=== PATIENT | male | born 1960 | race Caucasian/White ===

== ENCOUNTER 2023-07-14 12:25 | Emergency (ER) | payer OTHER, SELFPAY ==
[2023-07-14 12:25] VITALS: BMI 35.2
[2023-07-14 12:28] VITALS: BP 129/61
[2023-07-14 12:30] VITALS: BP 129/61
[2023-07-14 13:00] VITALS: BP 130/63
--- NOTE | 2023-07-14 13:03 | ED.GENMED ---
History of Present Illness
General
Chief Complaint: Chest Pain
Source: patient
Time Seen by Provider: 07/14/23 12:34
Travel History
Have you had any contact with someone who has COVID-19?: No
Do you have any symptoms of coronavirus? Fever > 100 degrees, chills, cough, shortness of breath, sore throat, loss of taste or smell, muscle aches, or headache?: No
History of Present Illness
History of Present Illness:
-year-old male presents emergency room complaining having a reaction to rituximab. Patient is receiving treatment for non-Hodgkin's lymphoma. While receiving treatment he began to feel chest tightness, dizziness and developed erythematous rash of
his face trunk and thighs. He was given albuterol nebs, Pepcid, Solu-Medrol and EpiPen. Symptoms have been improving. Chest discomfort is '10% of what it was earlier'.
Phy Exam
Physical Exam
Physical Exam:
General: Awake, Alert, Oriented X3. No acute distress.
Vitals: unremarkable
Head: Atraumatic
Eyes: Pupils equal, EOMI
Throat: Airway intact, no exudates
Neck: Trachea midline
Lungs: Clear and equal b/l
Heart: Regular rate, no murmurs
Abd: Soft, Nontender, No pulsatile mass
Neuro: Nonfocal
Skin: Pale, warm, dry, macular rash noted to thighs, trunk
Extremities: pulses equal b/l, no edema
Scores
Heart Score for Chest Pain Patients
STEMI patient?: Not applicable
Course
Orders/Labs/Results
Orders:
Orders
07/14/23 12:26
Electrocardiogram (*1) Urgent
Reason for Study: Chest Pain
07/14/23 12:27
EKG- Treatment ONCE
07/14/23 13:19
Troponin I Urgent
Vital Signs
Initial and Last Documented VS:
Initial Vital Signs
Pulse Resp BP
83 24 129/61
07/14/23 12:28 07/14/23 12:28 07/14/23 12:28
Last Documented Vital Signs
Temp Pulse Resp BP Pulse Ox
97.8 F 83 13 137/64 98
07/14/23 12:30 07/14/23 15:00 07/14/23 15:00 07/14/23 15:00 07/14/23 15:00
MDM/Problems Addressed
Differential Diagnosis Includes:
allergic reaction, anaphylactoid rx
MDM/Problems Addressed:
symptoms improved. Pt observed for a couple hours and has remained stable. Pt discharged to home
*Pulse Oximetry
Patient hypoxic: no
*EKG
Interpreted by ED Provider?: Yes
Comparison EKG: no comparison EKG present
Heart Rate: 79
Rate: normal
Rhythm: sinus and PAC's
Interval: normal interval
QRS Pattern: normal QRS
Ischemia: non-specific ST changes
*[employer] Interpretation
Rate: normal
Interpretation: normal
Rhythm: sinus
*Critical Care Note
Total Time (30-74mins, 75-104mins- exclusive of procedures): Not Applicable
ED Attending Note
-
Portions of this chart may have been created with voice recognition software.� Occasional wrong word or��sound alike� substitutions may have occurred due to the inherent limitations of voice recognition software.
Discharge Plan
Departure
Patient Disposition: Home (Routine Discharge)
Date of Disposition: 07/14/23
Time of Disposition: 14:56
Patient with high blood pressure during this ER visit?: No
Condition: Good
Discharge Problem:
Allergic reaction
Instructions: Adverse Drug Reactions, Adult ED
Prescriptions:
No Action
zolpidem [Ambien] 10 mg Tablet
10 mg PO HSPRN PRN (Reason: sleep/racing thoughts)
Patient Comments:
07/14/2023, pt. filled this med. on 03/08/2023 for 30 tablets according to PDMP.
docusate sodium 250 mg Capsule
1,000 mg PO BID
lidocaine-prilocaine 2.5-2.5 % Cream
1 applic TOPICAL DIRECTED
Patient Comments:
07/14/2023, apply when accessing port site.
famotidine [Pepcid] 20 mg Tablet
20 mg PO BID PRN (Reason: stomach discomfort)
omeprazole magnesium [Prilosec OTC] 20 mg Tablet,Delayed Release (Dr/Ec)
20 mg PO BID
bendamustine
171 mg IV .SEE BELOW
Patient Comments:
07/14/2023, pt. gets this treatment on day 1 and 2 every 28 days. Contacted [facility]ID Department to confirm dose and frequency of this treatment.
pegfilgrastim
6 mg SC .SEE BELOW
Patient Comments:
07/14/2023, next treatment is 07/18/2023. Contacted [facility]ID Department to confirm dose and frequency of this treatment.
rituximab
712 mg IV .SEE BELOW
Patient Comments:
07/14/2023, pt. gets this treatment on day 1 every 28 days. Contacted [facility]ID Department to confirm dose and frequency of this treatment.
Referrals:
Juliano Singh, DO [Family Provider] -
Interventions
Interventions:
*Risk Screen - Suicide Last Done: 07/14/23 12:38
*General Assessment Last Done: 07/14/23 12:38
*Neglect/Abuse Screening Last Done: 07/14/23 12:38
*ED COVID-19 Vaccine History Last Done: 07/14/23 12:38
*Nursing Disposition Last Done: 07/14/23 15:10
ED- Cardiac Assessment Last Done: 07/14/23 12:38
Discharge Date and Time
Discharge Date/Time: 07/14/23 15:10
[2023-07-14 14:06] LABS: Troponin I < 0.012 ng/ml
[2023-07-14 14:44] VITALS: BP 118/62
[2023-07-14 15:00] VITALS: BP 137/64
== END 2023-07-14 15:10 | disposition home or self-care (01) ==
LOC: EMR 12:25
PROVIDERS: EMERGENCY PHYSICIAN Emergency Medicine; FAMILY PHYSICIAN Family Medicine
DX: T78.40XA Allergy, unspecified, initial encounter (principal)
CPT/HCPCS: 99284; 84484; 93005

== ENCOUNTER 2023-08-17 13:28 | Outpatient (RCR) | payer OTHER, SELFPAY ==
[2023-08-17 08:40] LABS: % Basophils 0.9 % (0-2); % Eosinophils 2.8 % (0-6); % Lymphocytes 9.7 % (20.5-51.1); % Monocytes 10.7 % (1.7-9.3); % Neutrophils 75.9 % (42.2-75.2); Absolute Basophils 0.1 10^3/uL (0-0.2); Absolute Eosinophils 0.2 10^3/uL (0-0.7); Absolute Lymphocytes 0.6 10^3/uL (1.2-3.4); Absolute Monocytes 0.6 10^3/uL (0.1-0.6); Absolute Neutrophils 4.4 10^3/uL (1.4-6.5); Hematocrit 31.4 % (39.0-52.0); Hemoglobin 10.3 g/dL (13.0-18.0); Mean Corp Hgb Conc. 32.8 g/dL (33.0-37.0); Mean Corpuscular Hgb 29.7 pg (27.0-31.0); Mean Corpuscular Volume 90.5 fL (80.0-94.0); Mean Platelet Volume 10.2 fL (7.4-10.4); Platelet Count 156 10^3/uL (130-400); Red Blood Cell Count 3.47 10^6/uL (4.70-6.10); Red Cell Dist. Width 17.6 % (11.5-14.5); White Blood Cell Count 5.8 10^3/uL (4.8-10.8)
[2023-08-17 09:32] LABS: ALT (SGPT) 17 U/L (0-50); AST (SGOT) 19 U/L (17-59); Albumin 3.8 g/dl (3.5-5.0); Alkaline Phosphatase 100 U/L (38-126); Blood Urea Nitrogen 19 mg/dl (9-20); Calcium 8.4 mg/dl (8.4-10.2); Carbon Dioxide 25 mmol/L (22-30); Chloride 107 mmol/L (98-107); Glucose 80 mg/dl (70-99); Potassium 3.9 mmol/L (3.5-5.1); Sodium 138 mmol/L (135-145); Total Bilirubin 0.7 mg/dl (0.2-1.3); Total Protein 7.5 g/dl (6.3-8.2); Uric Acid 4.9 mg/dl (3.5-8.5); eGFR > 60.00
== END 2023-08-28 23:59 | disposition home or self-care (01) ==
LOC: OID 13:28
PROVIDERS: ATTENDING PHYSICIAN Internal Medicine Hematology & Oncology; FAMILY PHYSICIAN Family Medicine
DX: D47.2 Monoclonal gammopathy (principal)
CPT/HCPCS: 80053; 84550; 85025

== ENCOUNTER → 2023-09-23 13:19 | Outpatient (REF) | payer OTHER, SELFPAY | LOC: RAD 13:19 | PROVIDERS: ATTENDING PHYSICIAN Nurse Practitioner Family | DX: L03.90 Cellulitis, unspecified (principal) | CPT/HCPCS: 73610 ==

== ENCOUNTER → 2023-12-13 16:19 | Outpatient (REF) | payer OTHER, SELFPAY | LOC: RAD 16:19 | PROVIDERS: ATTENDING PHYSICIAN Physician Assistant Medical | DX: M25.572 Pain in left ankle and joints of left foot (principal) | CPT/HCPCS: 73610 ==

== ENCOUNTER → 2024-09-13 15:19 | Outpatient (REF) | payer MEDICARE, SELFPAY ==
[2024-09-13 15:17] LABS: % Basophils 0.5 % (0-2); % Eosinophils 0.5 % (0-6); % Immature Granulocytes 0.3 % (0-0.5); % Lymphocytes 6.7 % (20.5-51.1); % Monocytes 7.9 % (1.7-9.3); % Neutrophils 84.1 % (42.2-75.2); Absolute Lymphocytes 0.5 10^3/uL (1.2-3.4); Absolute Monocytes 0.6 10^3/uL (0.1-0.6); Absolute Neutrophils 6.3 10^3/uL (1.4-6.5); Hematocrit 36.5 % (39.0-52.0); Hemoglobin 12.1 g/dL (13.0-18.0); Mean Corp Hgb Conc. 33.2 g/dL (33.0-37.0); Mean Corpuscular Hgb 30.8 pg (27.0-31.0); Mean Corpuscular Volume 92.9 fL (80.0-94.0); Mean Platelet Volume 10.1 fL (7.4-10.4); Platelet Count 192 10^3/uL (130-400); Red Blood Cell Count 3.93 10^6/uL (4.70-6.10); White Blood Cell Count 7.5 10^3/uL (4.8-10.8)
[2024-09-13 16:45] LABS: IgG 1653 mg/dl (700-1600)
== END ==
LOC: OIDL 15:19
PROVIDERS: ATTENDING PHYSICIAN Internal Medicine Hematology & Oncology
DX: D47.2 Monoclonal gammopathy (principal); D50.9 Iron deficiency anemia, unspecified; D64.9 Anemia, unspecified; C85.98 Non-Hodgkin lymphoma, unspecified, lymph nodes of multiple sites
CPT/HCPCS: 82784; 83521; 84155; 84165; 85025; 86334

== ENCOUNTER → 2024-12-06 15:33 | Outpatient (REF) | payer MEDICARE, SELFPAY ==
[2024-12-06 15:21] LABS: Hematocrit 33.5 % (39.0-52.0); Hemoglobin 11.1 g/dL (13.0-18.0); Mean Corp Hgb Conc. 33.1 g/dL (33.0-37.0); Mean Corpuscular Volume 90.5 fL (80.0-94.0); Platelet Count 225 10^3/uL (130-400); Red Cell Dist. Width 13.6 % (11.5-14.5)
[2024-12-06 16:12] LABS: ALT (SGPT) 15 U/L (0-50); AST (SGOT) 18 U/L (17-59); Albumin 3.7 g/dl (3.5-5.0); Alkaline Phosphatase 59 U/L (38-126); Blood Urea Nitrogen 16 mg/dl (9-20); Calcium 8.6 mg/dl (8.4-10.2); Carbon Dioxide 29 mmol/L (22-30); Chloride 103 mmol/L (98-107); Glucose 106 mg/dl (70-99); Iron 38 ug/dl (49-181); Potassium 3.8 mmol/L (3.5-5.1); Sodium 137 mmol/L (135-145); Total Protein 6.7 g/dl (6.3-8.2); eGFR > 60.00
[2024-12-06 16:21] LABS: Total Iron Binding Capacity 187 ug/dl (261-462)
[2024-12-06 21:08] LABS: Ferritin 336.0 ng/ml (17.9-464.0)
[2024-12-06 21:22] LABS: Vitamin B12 270 pg/ml (239-931)
[2024-12-11 22:05] LABS: Albumin 3.33 g/dL (3.75-5.01); Free Kappa Light Chains,Quant 179.28 mg/L (3.30-19.40); Free Lambda Light Chains,Quant 7.11 mg/L (5.71-26.30); Immunofixation Electrophoresis IFE Done; Kappa/Lambda Fr Light Ratio 25.22 (0.26-1.65); Total Protein-Electrophoresis 6.6 g/dL (6.3-8.2)
== END ==
LOC: OIDL 15:33
PROVIDERS: ATTENDING PHYSICIAN Internal Medicine Hematology & Oncology
DX: D47.2 Monoclonal gammopathy (principal); D50.9 Iron deficiency anemia, unspecified; D64.9 Anemia, unspecified; C85.98 Non-Hodgkin lymphoma, unspecified, lymph nodes of multiple sites; Z79.899 Other long term (current) drug therapy
CPT/HCPCS: 80053; 82232; 82607; 82728; 82784; 83521; 83540; 83550; 84155; 84165; 85025; 86334

== ENCOUNTER → 2025-02-27 10:20 | Outpatient (REF) | payer MEDICARE, SELFPAY ==
[2025-02-27 10:37] LABS: Hematocrit 33.8 % (39.0-52.0); Hemoglobin 10.6 g/dL (13.0-18.0); Mean Corp Hgb Conc. 31.4 g/dL (33.0-37.0); Mean Corpuscular Volume 90.6 fL (80.0-94.0); Platelet Count 205 10^3/uL (130-400); Red Cell Dist. Width 14.1 % (11.5-14.5)
[2025-02-27 12:17] LABS: ALT (SGPT) 26 U/L (0-50); AST (SGOT) 19 U/L (17-59); Albumin 3.6 g/dl (3.5-5.0); Alkaline Phosphatase 67 U/L (38-126); Blood Urea Nitrogen 20 mg/dl (9-20); Calcium 8.5 mg/dl (8.4-10.2); Carbon Dioxide 27 mmol/L (22-30); Chloride 105 mmol/L (98-107); Glucose 89 mg/dl (70-99); Iron 34 ug/dl (49-181); Potassium 4.5 mmol/L (3.5-5.1); Sodium 137 mmol/L (135-145); Total Protein 7.0 g/dl (6.3-8.2); eGFR > 60.00
[2025-02-27 12:28] LABS: Total Iron Binding Capacity 190 ug/dl (261-462)
[2025-02-27 13:22] LABS: Ferritin 307.0 ng/ml (17.9-464.0)
[2025-02-27 13:36] LABS: Vitamin B12 510 pg/ml (239-931)
== END ==
LOC: OIDL 10:20
PROVIDERS: ATTENDING PHYSICIAN Nurse Practitioner Adult Health
DX: D47.2 Monoclonal gammopathy (principal); D50.9 Iron deficiency anemia, unspecified; D64.9 Anemia, unspecified; C85.98 Non-Hodgkin lymphoma, unspecified, lymph nodes of multiple sites; D51.9 Vitamin B12 deficiency anemia, unspecified
CPT/HCPCS: 80053; 82232; 82607; 82728; 82784; 83521; 83540; 83550; 84155; 84165; 85025; 86334